=== PATIENT | male | born 1970 | race Caucasian/White ===

== ENCOUNTER 2018-10-24 01:56 | Outpatient (CLI) | payer OTHER, SELFPAY ==
[2018-10-24 08:13] LABS: ALT 41 U/L (12-78); AST 16 U/L (15-37); Alkaline Phosphatase 55 U/L (46-116); Anion Gap 8.9 mmol/L (3-11); BUN 14 mg/dL (7-18); Bilirubin, Total 0.7 mg/dL (0.2-1.0); CO2 29.1 mmol/L (21.0-32.0); CREATININE 0.83 mg/dL (0.70-1.30); Chloride 102 mmol/L (98-107); Cholesterol 139 mg/dL (50-200); Glucose 97 mg/dL (70-100); HDL Cholesterol 41 mg/dL (40-60); LDL CHOLESTEROL 85 mg/dL (<100); Potassium 4.5 mmol/L (3.5-5.1); Sodium 140 mmol/L (136-145); Total Protein 7.1 g/dL (6.4-8.2); Triglyceride 52 mg/dL (30-150)
== END 2018-10-24 02:16 ==
PROVIDERS: PCP Family Medicine; Visit Provider Family Medicine
DX: Z00.00 Encounter for general adult medical examination without abnormal findings (principal); Z13.220 Encounter for screening for lipoid disorders; Z13.228 Encounter for screening for other metabolic disorders
CPT/HCPCS: 36415; 80053; 80061; 83721

== ENCOUNTER 2018-11-12 01:05 | Outpatient (CLI) | payer OTHER, SELFPAY ==
--- NOTE | 2018-11-12 07:04 | DI.US_ITS ---
SYMPTOM/DIAGNOSIS: ABD CHANGES, ABD PAIN, R10.9 ABDOMEN ULTRASOUND: There are no prior comparison exams. The aorta is normal in diameter. The liver is normal in size and echogenicity. No focal liver lesions or biliary dilatation is seen. The gallbladder is unremarkable, without evidence of stones or wall thickening. The kidneys show normal parenchymal thickness. No stones or hydronephrosis is present. The spleen is normal in size. The pancreas is not well seen. There is no ascites. IMPRESSION: Negative abdomen ultrasound.
== END 2018-11-12 01:25 ==
PROVIDERS: PCP Family Medicine; Visit Provider Family Medicine
DX: R10.9 Unspecified abdominal pain (principal)
CPT/HCPCS: 76700

== ENCOUNTER 2020-01-24 09:07 | Day surgery (SDC) | payer OTHER, SELFPAY ==
[2020-01-24 09:19] VITALS: BP 114/74; PULSE 55; RESP 16; TEMP 36.7; O2SAT 99
[2020-01-24] MEDS: Lactated Ringers 1,000 ML 80 ML IV (09:41)
--- NOTE | 2020-01-24 10:03 | W.PM.DSUDISC ---
Discharge Plan Disposition Patient Disposition: HOME Condition: Good Discharge Details Reason For Visit: Colonoscopy Attending Provider: Benita Olvera Primary Care Provider: Yesika Dias Home Meds and New Rx's Prescriptions: Continued indomethacin 50 mg capsule 50 mg PO TID PRN (Reason: gout) Qty: 30 RF: 3 multivitamin tablet 1 tab PO DAILY RF: 0 sildenafil [Viagra] 100 mg tablet 100 mg PO DAILY PRN (Reason: sexual activity) RF: 0 Discontinued polyethylene glycol 3350 17 gram/dose powder 238 g PO ONCE Qty: 238 RF: 0 bisacodyl [Dulcolax (bisacodyl)] 5 mg tablet,delayed release (DR/EC) 5 mg PO ONCE Qty: 4 RF: 0 Discharge Instructions Additional Instructions: Findings: A possible tiny polyp was removed. My office will contact you with biopsy results. Follow up: If the biopsy confirms a polyp, follow up colonoscopy will be needed in 5-7 years. Please call if you develop: fevers >101.5 Nausea or Vomiting Abdominal pain that is not transient DAY SURGERY UNIT POST COLONOSCOPY INSTRUCTIONS 1. Because there will be medication in your system for the next 24 hours, you may feel a little sleepy. Your coordination will be affected. Therefore: a. Do not drive or operate dangerous equipment for 24 hours. b. Do not drink alcohol beverages for 24 hours (not even beer). c. Plan to go home and rest for the day. 2. Generally there are no restrictions on your activity after a day or so has gone by, but you may feel a bit fatigued for a few days. 3 After you arrive home you may have a light meal and return to a normal diet as you can tolerate it without feeling sick to your stomach. 4. After surgery, you may feel pain or discomfort. This should be only transient, but if it persists please contact your doctor. 5. If there are any questions regarding the findings of your procedure, please feel free to contact your doctor. 6. If you are unable to contact your doctor with a problem, contact the hospital at [phone]. 7. Continue all your regular medications unless directed otherwise. I understand the above instructions and have no questions. Signature of Patient or Responsible Adult Escort Date/Time Name of Responsible Adult Escort Signature of Nurse Date/Time Activity:: Activity as Tolerated Diet:: As Tolerated Discharge Orders Discharge Orders: Discharge Order (Routine); Ordered 01/24/20 Ordered By: Benita Olvera DS: Diagnosis Discharge Diagnosis (1) Colon polyp: Status: Acute
--- NOTE | 2020-01-24 10:04 | COLE_ITS ---
Date of service: 01/24/20 Time of Service: 11:46 Colonoscopy Report Date of procedure: 01/24/20 Pre-op diagnosis general: Screening Post-op diagnosis procedure note: other (Possible sigmoid polyp) Procedure: Colonoscopy with biopsy Surgeon: Benita Olvera Anesthesia proc note operative: MAC Indications: This patient presents for his first screening colonoscopy. No symptoms or FH colon cancer. Procedure Description: The patient was placed in the left Hinds position. Propo fol was titrated to sedation. Digital rectal examination revealed no abnormalities. The scope was advanced to the cecum without difficulty. The ileocecal valve and appendiceal orifice were clearly identified. The prep was good. The scope was slowly withdrawn over the course of greater than 6 minutes with no abnormalities seen in the ascending, transverse, descending colon. In the sigmoid colon a possible polyp was identified. This seemed to flatten out with observation but I did biopsy the area. The rectum was normal including on retroflexed view. The patient tolerated the procedure well and was stable to recovery. If the biopsy shows an adenomatous polyp, he will need a colonoscopy in 5-7 years.
--- NOTE | 2020-01-24 10:30 | BOWEL_PTH ---
PATIENT: Kory Ohara LOC: [facility] U#:[id number] AGE/SX: 49/M ROOM: RE01/24/[address]: Benita Olvera MD : 1970 BED: DIS: 01/24/2020 SPEC #: [id number] RECD: 01/24/20 12:39 STATUS: TORIE REQ #: [id number] ANTONI: 01/24/20 10:[address]: Benita Olvera DEPT: Surgical Specimen RECD BY: Cherie Coyle ENTERED: 01/24/20 12:40 SP TYPE: Bowel OTHR DR: Yesika Dias MD, DC Tissues: 1 - BIOPSY BOWEL Procedures: GROSS AND MICRO LEVEL 4 Comments:
[2020-01-24 10:56] VITALS: BP 121/79; PULSE 64; RESP 16; TEMP 36.2; O2SAT 97
== END 2020-01-24 11:25 | disposition home or self-care (01) ==
PROVIDERS: PCP Family Medicine; Visit Provider Surgery
PROC: 0DJD8ZZ Inspection of Lower Intestinal Tract, Via Natural or Artificial Opening Endoscopic (ICD-10-PCS; CPT 45378; principal; 2020-01-24 11:00)
DX: Z12.11 Encounter for screening for malignant neoplasm of colon (principal); K63.5 Polyp of colon
CPT/HCPCS: 45380; 88305; J2001

== ENCOUNTER 2020-08-25 15:06 | Outpatient (REF) | payer OTHER, SELFPAY ==
[2020-08-25 21:07] LABS: Absolute Basophil Count 0.05 10^3/uL (0.0-0.2); Absolute Eosinophil Count 0.22 10^3/uL (0.0-0.7); Absolute Lymphocyte Count 2.39 10^3/uL (1.2-3.4); Absolute Monocyte Count 0.31 10^3/uL (0.1-0.8); Absolute Neutrophil Count 1.84 10^3/uL (1.2-6.7); ESR < 2 mm//hr (0-20); Eosinophils % 4.6; HCT 44.3 % (40.0-50.0); HGB 15.6 g/dL (13.5-17.5); Lymphocytes % 49.7; MCH 31.8 pg (27.0-33.0); MCHC 35.2 % (32.0-36.0); MCV 90.2 fL (80-95); MPV 12.1 fL (8.0-11.0); Monocytes % 6.4; Neutrophils % 38.3; Nucleated RBC 0 %; Platelet Count 168 10^3/uL (130-400); RBC 4.91 10^6/uL (4.36-5.78); RDW 12.6 % (11.8-14.1); RDW-SD 41.5 fL; WBC 4.81 10^3/uL (4.4-10.8)
[2020-08-25 21:14] LABS: Uric Acid 7.9 mg/dL (3.5-7.2)
[2020-08-25 21:20] LABS: C-Reactive Protein < 0.05 mg/dL (0.0-0.3)
[2020-08-28 10:17] LABS: Anti-DNase B Titer 77 U/mL (0 - 300); Antistrep-O Titer 52 IU/mL (0 - 530)
== END 2020-08-25 15:07 | disposition home or self-care (01) ==
LOC: LBN 15:06
PROVIDERS: PCP Family Medicine; Visit Provider Family Medicine
DX: M25.59 Pain in other specified joint (principal)
CPT/HCPCS: 85652; 84550; 85025; 86060; 86140; 86215

== ENCOUNTER 2020-11-26 03:18 | Outpatient (CLI) | payer OTHER, SELFPAY ==
--- NOTE | 2020-11-26 08:03 | DI.RAD_ITS ---
Exam(s) XR KNEE LT 3V AP,LAT,DORIS EXAM: XR KNEE LT 3V AP,LAT,DORIS CLINICAL HISTORY: l knee pain, M25.562. TECHNIQUE: 2D digital imaging was performed. COMPARISON: No exams were available for comparison FINDINGS: There is no evidence of fracture nor prominent joint effusion. Minimal degenerative changes. Mild n arrowing of the medial compartment no osteophytes. Incidentally noted is an eccentric nonexpansile sclerotic bone lesion in the distal lateral posterior diaphysis of the femur. This may be remnant fibrous cortical defect. There is calcification at the insertion site of the quadriceps on the anterosuperior patella evident. IMPRESSION: DATA REPOSITORY: RADIATION DOSE DELIVERED:
== END 2020-11-26 03:38 ==
PROVIDERS: PCP Family Medicine; Visit Provider Family Medicine
DX: M25.562 Pain in left knee (principal)
CPT/HCPCS: 73562

== ENCOUNTER 2020-11-27 01:27 | Outpatient (CLI) | payer OTHER, SELFPAY ==
[2020-11-27 12:44] LABS: Uric Acid 7.7 mg/dL (3.5-7.2)
== END 2020-11-27 01:28 | disposition home or self-care (01) ==
LOC: LOS 01:27
PROVIDERS: PCP Family Medicine; Visit Provider Family Medicine
DX: M25.562 Pain in left knee (principal); M10.9 Gout, unspecified
CPT/HCPCS: 36415; 84550

== ENCOUNTER 2021-04-09 00:57 | Outpatient (CLI) | payer OTHER, SELFPAY ==
--- NOTE | 2021-04-09 09:40 | DI.CT_ITS ---
Exam(s) CT ABDOMEN PELVIS W EXAM: CT ABDOMEN PELVIS W CLINICAL HISTORY: LLQ pain ? hernia Spigelian,R10.32 TECHNIQUE: COMPARISON: No exams were available for comparison FINDINGS: CT examination of the abdomen and pelvis was performed with bolus infusion of 100 cc of Omnipaque 350 . Images obtained through the lung bases are unremarkable. The liver appears normal with no evidence of a focal mass. Spleen is unremarkable in appearance.. Gallbladder and bile ducts are unremarkable. Pancreas is unremarkable in appearance. Adrenals appear normal bilaterally. Kidneys appear normal with no evidence of renal mass, hydronephrosis, or nephrolithiasis. Unremarkab le bladder. There is no evidence of abdominal or pelvic adenopathy. Abdominal aorta is of normal diameter and no abnormality is seen involving major visceral branches.. Appendix is not specifically visualized but there is no evidence of appendicitis. No evidence divert iculitis or bowel obstruction. No abdominal wall hernia is seen. Specifically, the requisition raises the possibility of a spigelia n hernia and no spigelian hernia is identified. Impression: Negative CT examination of the abdomen and pelvis. No hernia seen. RADIATION DOSE DELIVERED: 859.51mGy.cm Total DLP 859.51mGy.cm Total DLP CTDIvol DATA REPOSITORY: All CT scans at this facility are submitted to the National Radiology Data Registry (NRDR) Dose Index Registry (DIR) with the [employer] ([employer]). RADIATION OPTIMIZATION: All CT scans at this facility use at least one of these dose optimization te chniques: automated exposure control; mA and/or kV adjustment per patient size (includes targeted exa ms where dose is matched to clinical indication); or iterative reconstruction.
[2021-04-09] MEDS: Normal Saline - Diluent 50 ML VIAL IV (09:52)
[2021-04-09] MEDS: Omnipaque 350 MG/ML 100 ML BTL IJ (09:53)
[2021-04-09] MEDS: Normal Saline Flush 10 ML SYR IVP (09:54)
== END 2021-04-09 01:17 ==
PROVIDERS: PCP Family Medicine; Visit Provider Family Medicine
DX: R10.32 Left lower quadrant pain (principal)
CPT/HCPCS: 74177; J3490

== ENCOUNTER 2022-03-07 10:19 | Outpatient (CLI) | payer OTHER, SELFPAY ==
[2022-03-07 12:55] LABS: ALT 31 U/L (16-63); AST 15 U/L (15-37); Albumin 4.3 g/dL (3.4-5.0); Alkaline Phosphatase 46 U/L (46-116); Anion Gap 8.4 mmol/L (3-11); BUN 12 mg/dL (7-18); Bilirubin, Total 0.5 mg/dL (0.2-1.0); CO2 29.6 mmol/L (21.0-32.0); CREATININE 0.8 mg/dL (0.70-1.30); Calcium 9.2 mg/dL (8.5-10.1); Calculated LDL 82 mg/dL (<100); Chloride 103 mmol/L (98-107); Cholesterol 150 mg/dL (<200); Estimated GFR 106.48 (mL/min/1.73m2); Glucose 91 mg/dL (74-106); HDL Cholesterol 50 mg/dL (40-60); Potassium 3.8 mmol/L (3.5-5.1); Sodium 141 mmol/L (136-145); Total Protein 7.8 g/dL (6.4-8.2); Triglyceride 93 mg/dL (<150)
[2022-03-07 18:39] LABS: PSA, Screening 2.1 ng/mL (<=3.5)
== END 2022-03-07 10:20 | disposition home or self-care (01) ==
LOC: LOS 10:19
PROVIDERS: PCP Family Medicine; Referring Provider Family Medicine; Visit Provider Family Medicine
DX: Z00.00 Encounter for general adult medical examination without abnormal findings (principal); Z13.220 Encounter for screening for lipoid disorders; Z12.5 Encounter for screening for malignant neoplasm of prostate
CPT/HCPCS: 36415; 80053; 80061; 84153

== ENCOUNTER 2023-08-18 07:04 | Outpatient (CLI) | payer OTHER, SELFPAY ==
[2023-08-18 07:30] LABS: Hemoglobin A1C 5.2 % (<5.7)
[2023-08-18 07:38] LABS: Glucose 106 mg/dL (74-106)
== END 2023-08-18 07:05 | disposition home or self-care (01) ==
LOC: LBO 07:05
PROVIDERS: PCP Family Medicine; Visit Provider Optometrist
DX: H35.352 Cystoid macular degeneration, left eye (principal)
CPT/HCPCS: 36415; 82947; 83036

== ENCOUNTER 2023-08-25 01:39 | Outpatient (CLI) | payer OTHER, SELFPAY ==
[2023-08-25 10:05] LABS: HCT 48.1 % (40.0-50.0); HGB 16.5 g/dL (13.5-17.5); MCH 31.8 pg (27.0-33.0); MCHC 34.3 % (32.0-36.0); MCV 93 fL (80-95); MPV 10.1 fL (8.0-11.0); Platelet Count 161 10^3/uL (130-400); RBC 5.19 10^6/uL (4.36-5.78); RDW 11.9 % (11.8-14.1); RDW-SD 40.5 fL; WBC 5.79 10^3/uL (4.4-10.8)
[2023-08-25 10:09] LABS: ESR 7 mm/hr (0-20)
[2023-08-25 10:25] LABS: Hemoglobin A1C 5.3 % (<5.7)
[2023-08-25 10:34] LABS: COMMENT (LAB VIEW ONLY) 19.96 mg/dL; Microalb ug/mg Crea 18.5 ug/mg Cr
[2023-08-25 10:44] LABS: ALT 32 U/L (16-63); AST 13 U/L (15-37); Albumin 3.9 g/dL (3.4-5.0); Alkaline Phosphatase 49 U/L (46-116); Anion Gap 6.9 mmol/L (3-11); BUN 14 mg/dL (7-18); Bilirubin, Total 0.4 mg/dL (0.2-1.0); CO2 30.1 mmol/L (21.0-32.0); CREATININE 0.9 mg/dL (0.70-1.30); Chloride 103 mmol/L (98-107); Estimated GFR 101.49 (mL/min/1.73m2); Glucose 104 mg/dL (74-106); Potassium 3.9 mmol/L (3.5-5.1); Sodium 140 mmol/L (136-145); TSH (W/Ref FT4) 2.05 uIU/mL (0.36-3.74); Total Protein 7.6 g/dL (6.4-8.2)
== END 2023-08-25 01:40 | disposition home or self-care (01) ==
LOC: LBO 01:39
PROVIDERS: PCP Family Medicine; Visit Provider Family Medicine
DX: I10 Essential (primary) hypertension (principal); H47.10 Unspecified papilledema; E11.9 Type 2 diabetes mellitus without complications; E03.9 Hypothyroidism, unspecified
CPT/HCPCS: 36415; 80053; 85027; 85652; 82043; 82570; 83036; 84443

== ENCOUNTER 2024-05-06 10:05 | Outpatient (CLI) | payer OTHER, SELFPAY ==
[2024-05-06 13:00] LABS: ALT 26 U/L (16-63); AST 15 U/L (15-37); Albumin 4.2 g/dL (3.4-5.0); Alkaline Phosphatase 46 U/L (46-116); Anion Gap 7.6 mmol/L (3-11); BUN 14 mg/dL (7-18); Bilirubin, Total 0.55 mg/dL (0.2-1.0); CO2 30.4 mmol/L (21.0-32.0); CREATININE 0.9 mg/dL (0.70-1.30); Calcium 9.5 mg/dL (8.5-10.1); Chloride 105 mmol/L (98-107); Estimated GFR 101.49 (mL/min/1.73m2); Glucose 98 mg/dL (74-106); Potassium 4.2 mmol/L (3.5-5.1); Sodium 143 mmol/L (136-145); Total Protein 7.3 g/dL (6.4-8.2); Vitamin B12 914 pg/mL (193-986)
[2024-05-06 19:18] LABS: PSA, Screening 1.9 ng/mL (<=3.5)
[2024-05-06 19:48] LABS: Hepatitis C Ab w Rflx HCV PCR Negative (Negative)
== END 2024-05-06 10:06 | disposition home or self-care (01) ==
LOC: LOS 10:05
PROVIDERS: PCP Family Medicine; Referring Provider Family Medicine; Visit Provider Family Medicine
DX: I10 Essential (primary) hypertension (principal); Z00.00 Encounter for general adult medical examination without abnormal findings
CPT/HCPCS: 36415; 80053; 84153; 86803; 82607